=== PATIENT | female | born 1990 | race American Indian/Alaskan Native ===

== ENCOUNTER 2018-02-17 21:40 | Emergency (ER) | payer MEDICAID ==
[2018-02-17 21:51] VITALS: BP 137/73
[2018-02-17 22:15] LABS: Basophils # (Auto) 0.1 K/mm3 (0.0-0.1); Basophils % (Auto) 0.6 % (0.0-1.8); Eosinophils % (Auto) 0.1 % (0.0-4.3); Hematocrit 35.6 % (30.3-42.9); Hemoglobin 11.8 gm/dl (10.1-14.3); Lymphocytes # (Auto) 2.3 K/mm3 (1.2-5.4); Lymphocytes % (Auto) 25.7 % (13.4-35.0); Mean Corpuscular HGB Conc 33 % (30-34); Mean Corpuscular Hemoglobin 29 pg (28-32); Mean Corpuscular Volume 87 fl (79-97); Monocytes # (Auto) 0.6 K/mm3 (0.0-0.8); Monocytes % (Auto) 6.1 % (0.0-7.3); Platelet Count 219 K/mm3 (140-440); Red Blood Count 4.09 M/mm3 (3.65-5.03)
[2018-02-17 22:38] LABS: Alanine Aminotransferase 12 units/L (7-56); Albumin 4.1 g/dL (3.9-5); BUN/Creatinine Ratio 13; Blood Urea Nitrogen 9 mg/dL (7-17); Calcium 9.3 mg/dL (8.4-10.2); Hemolysis Index 6; Lipase 21 units/L (13-60)
[2018-02-17 23:17] LABS: Bilirubin,Urine NEG (Negative); Blood,Urine NEG (Negative); Color,Urine Yellow (Yellow); Protein,Urine <15 mg/dL mg/dL (Negative)
--- NOTE | 2018-02-17 23:52 | Emergency Department Report ---
ED General Adult HPI - General Chief complaint: Abdominal Pain Stated complaint: FREQUENT URINATION/HEADACHE Time Seen by Provider: 02/17/18 23:40 Source: patient Mode of arrival: Ambulatory Limitations: No Limitations - History of Present Illness Initial comments: 27-year-old female presents to the emergency room for headache that causes photosensitivity and nausea and lightheadedness as well as urine frequency urinary urgency that's been going on for 2 weeks. Patient does admit to vaginal discharge. Her LMP was 01/27/2018. 6 para 5. -: week(s) (2) Consistency: constant Associated Symptoms: denies other symptoms Treatments Prior to Arrival: none - Related Data Previous Rx's Medication Instructions Recorded Last Taken Type metroNIDAZOLE [Flagyl] 500 mg PO Q8HR #21 tablet 02/18/18 Unknown Rx Allergies Allergy/AdvReac Type Severity Reaction Status Date / Time No Known Allergies Allergy Unverified 02/17/18 21:50 ED Review of Systems ROS: Stated complaint: FREQUENT URINATION/HEADACHE Other details as noted in HPI Gastrointestinal: abdominal pain (also complain) Genitourinary: urgency, dysuria, discharge ED Past Medical Hx - Past Medical History Previous Medical History?: No - Surgical History Past Surgical History?: No Hx Cholecystectomy: Yes Additional Surgical History: c section - Social History Smoking Status: Never Smoker Substance Use Type: None - Medications Home Medications: Home Medications Medication Instructions Recorded Confirmed Last Taken Type metroNIDAZOLE [Flagyl] 500 mg PO Q8HR #21 tablet 02/18/18 Unknown Rx ED Physical Exam - General Limitations: No Limitations General appearance: alert, in no apparent distress - Head Head exam: Present: atraumatic, normocephalic - Eye Eye exam: Present: normal appearance - ENT ENT exam: Present: mucous membranes moist - Respiratory Respiratory exam: Present: normal lung sounds bilaterally. Absent: respiratory distress - Cardiovascular Cardiovascular Exam: Present: regular rate, normal rhythm. Absent: systolic murmur, diastolic murmur, rubs, gallop - GI/Abdominal GI/Abdominal exam: Present: soft, normal bowel sounds - External exam: Present: normal external exam Speculum exam: Present: vaginal discharge, cervical discharge Bi-manual exam: Present: normal bi-manual exam. Absent: cervical motion tendernes, adnexal tenderness, adnexal mass, uterine enlargement, uterine tenderness - Extremities Exam Extremities exam: Present: normal inspection - Back Exam Back exam: Present: normal inspection. Absent: CVA tenderness (R), CVA tenderness (L) - Neurological Exam Neurological exam: Present: alert, oriented X3 - Psychiatric Psychiatric exam: Present: normal affect, normal mood - Skin Skin exam: Present: warm, dry, intact, normal color. Absent: rash ED Course Vital Signs 02/17/18 02/17/18 02/17/18 21:38 21:46 21:47 Temperature 98.7 F 101.6 F H 98.7 F Pulse Rate 90 116 H 91 H Respiratory 20 22 17 Rate Blood Pressure 131/73 110/67 137/73 O2 Sat by Pulse 99 98 99 Oximetry 02/18/18 02:00 Temperature Pulse Rate 82 Respiratory 17 Rate Blood Pressure O2 Sat by Pulse 99 Oximetry ED Medical Decision Making - Lab Data Result diagrams: 02/17/18 22:01 02/17/18 22:01 - Medical Decision Making She has been evaluated by this provider fast track. Patient was given IV insertion for Toradol for Reglan and Benadryl. Patient had a pelvic exam Treated patient for STDs with Rocephin 250 mG IM, a Zithromax in 1000 mg by mouth. Patient will be discharged home on Flagyl 500 mg one tablet by mouth every 8 hours 7 days. Instructions given to patient to be sure partners aware of being treated and tested. Critical care attestation.: If time is entered above; I have spent that time in minutes in the direct care of this critically ill patient, excluding procedure time. ED Disposition Clinical Impression: Bacterial vaginosis, Potential exposure to STD Migraine Qualifiers: Migraine type: unspecified Status migrainosus presence: without status migrainosus Intractability: intractable Qualified Code(s): G43.919 - Migraine, unspecified, intractable, without status migrainosus Disposition: DC-01 TO HOME OR SELFCARE Is pt being admited?: No Does the pt Need Aspirin: No Condition: Stable Instructions: Bacterial Vaginosis (ED), Sexually Transmitted Diseases (ED), Migraine Headache (ED), Abdominal Pain (ED) Additional Instructions: Please inform your partner that you've been tested and treated for STDs. I highly recommend to avoid intercourse until your partner has been tested and treated. Please complete her antibiotics as prescribed. Follow-up with your OB or primary care provider. I recommend for you to have a HIV test syphilis hepatitis B herpes and hepatitis C testing that all to be done at the health Department. Prescriptions: metroNIDAZOLE [Flagyl] 500 mg PO Q8HR #21 tablet Referrals: PRIMARY CARE, [Primary Care Provider] - 3-5 Days Forms: Accompanied Note, STI Treatment and Prevention, Work/School Release Form (ED)
[2018-02-17] MEDS ORDERED: REGLAN IV ONE (23:53)
[2018-02-17] MEDS ORDERED: BENADRYL IV ONE (23:54)
[2018-02-17] MEDS ORDERED: TORADOL IV ONE (23:54)
[2018-02-18] MEDS ORDERED: ZITHROMAX PO ONE (00:40)
[2018-02-18] MEDS ORDERED: ROCEPHIN IM ONE (00:40)
[2018-02-18] MEDS ORDERED: XYLOCAINE 1% MPF 5 mL INFILTRATI ONE (00:40)
== END 2018-02-18 02:00 | disposition home or self-care (01) ==
LOC: ED 21:40
DX: N76.0 Acute vaginitis (principal); G43.919 Migraine, unspecified, intractable, without status migrainosus; Z90.49 Acquired absence of other specified parts of digestive tract
CPT/HCPCS: 36415; 80053; 81001; 83690; 84703; 85025; 87210; 96372; 96374; 96375; 99284; J0696; J1200; J1885; J2765

== ENCOUNTER 2020-05-25 10:27 | Outpatient (CLI) | payer OTHER ==
--- NOTE | 2020-05-25 12:12 | XRay Report ---
LEFT WRIST 2 VIEWS INDICATION / CLINICAL INFORMATION: CARPEL TUNNEL SYNDROME LEFT WRIST/HAND COMPARISON: None available. FINDINGS: BONES / JOINT(S): No acute fracture. 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 No significant arthritis. SOFT TISSUES: No significant abnormality. ADDITIONAL FINDINGS: None. Signer Name: Naseem Street MD Signed: 05/25/2020 12:08 PM Workstation Name: [id number]
== END 2020-05-25 10:28 | disposition home or self-care (01) ==
LOC: XRAY 10:27
PROVIDERS: ATTEND Internal Medicine
DX: G56.02 Carpal tunnel syndrome, left upper limb (principal); F39 Unspecified mood [affective] disorder